=== PATIENT | male | born 1985 | race Caucasian/White ===

== ENCOUNTER 2016-05-20 20:58 | Inpatient (IN) | payer OTHER ==
[2016-05-20 21:24] LABS: VENOUS BLOOD GAS HCO3 11.8 meq/L (19-25)
[2016-05-20 21:25] LABS: VENOUS PH 7.29 (7.32-7.42)
[2016-05-20 21:37] LABS: BASOPHIL 0.7 % (0-2.0); EOSINOPHIL 1.2 % (0-4.5); MCH 29.2 pg (25.7-33.7); MCHC 33.1 g/dl (32.0-35.9); MEAN PLT VOLUME 12.4 fl (7.5-11.1); NEUTROPHILS 71.6 % (42.8-82.8); PLATELET COUNT 279 K/MM3 (134-434); RDW 13.5 % (11.9-15.9); WHITE BLOOD COUNT 12.7 K/mm3 (4.0-10.0)
[2016-05-20 21:39] LABS: URINE APPEARANCE CLOUDY; URINE BILIRUBIN NEGATIVE (NEGATIVE); URINE BLOOD NEGATIVE (NEGATIVE); URINE COLOR YELLOW; URINE GLUCOSE (UA) 2+ (NEGATIVE); URINE KETONE 2+ (NEGATIVE); URINE LEUK ESTERASE NEGATIVE (NEGATIVE); URINE NITRITE NEGATIVE (NEGATIVE); URINE UROBILINOGEN NEGATIVE E.U./dl (0.2-1.0)
[2016-05-20 21:43] LABS: URINE PROTEIN 2+ (NEGATIVE)
[2016-05-20 21:47] LABS: URINE BACTERIA RARE /hpf (NONE SEEN); URINE HYALINE CAST 16 /lpf; URINE MUCUS FEW; URINE RBC 1 /hpf (0-3); URINE WBC 4 /hpf (3-5)
[2016-05-20 22:16] LABS: ALBUMIN 4.5 g/dl (3.4-5.0); ALK PHOS 122 U/L (45-117); ANION GAP 18 (8-16); BILIRUBIN,TOTAL 0.6 mg/dL (0.2-1.0); CALCIUM 9.4 mg/dL (8.5-10.1); CO2 12 mmol/L (21-32); CREATININE 0.8 mg/dL (0.7-1.3); GLUCOSE,RANDOM 291 mg/dL (74-106); SGOT/AST 59 U/L (15-37); SGPT/ALT 147 U/L (12-78); TOT PROT 8.2 g/dl (6.4-8.2)
[2016-05-20] MEDS ORDERED: SODIUM CHLORIDE 1,000 ML IV STA ×2 (22:21→22:53)
--- NOTE | 2016-05-20 22:35 | PDOC ---
History of Present Illness - General History Source: Patient Exam Limitations: No Limitations - History of Present Illness Initial Comments: 05/20/16 23:05 The patient is a 30 year old male, with a significant past medical history of hypertension and recent diagnosis of type 2 diabetes, who presents to the emergency department with elevated glucose. He reports that he has been taking 500 mg metformin twice a day. The patient was seen at [facility] urgent care 2 days ago where he was started on metformin for his newly diagnosed diabetes. He followed up yesterday and had elevate glucoses ranging from 300-400 and was sent to the ED for evaluation today due to abnormal blood work. The patient denies chest pain, shortness of breath, headache and dizziness. Denies fever, chills, nausea, vomit, diarrhea and constipation. Denies dysuria, frequency, urgency and hematuria. Allergies: None Past surgical history: None reported Social history: No alcohol, tobacco or drug use reported <Steve Morrissey - Last Filed: 05/21/16 01:39> - General History Source: Patient Exam Limitations: No Limitations <Edenilson Millan - Last Filed: 05/21/16 01:53> - General Chief Complaint: Revisit, Lab Variance Stated Complaint: PCP REF. Time Seen by Provider: 05/20/16 20:59 Past History <Steve Morrissey - Last Filed: 05/21/16 01:39> - Past Medical History Diabetes: Yes - Psycho/Social/Smoking Cessation Hx Suicidal Ideation: No Smoking Status: No Smoking History: Former smoker Have you smoked in the past 12 months: No Number of Cigarettes Smoked Daily: 0 Information on smoking cessation initiated: No Hx Alcohol Use: No Drug/Substance Use Hx: No <Edenilson Millan - Last Filed: 05/21/16 01:53> - Past Medical History Allergies/Adverse Reactions: Allergies Allergy/AdvReac Type Severity Reaction Status Date / Time No Known Allergies Allergy Verified 05/20/16 21:05 Home Medications: Ambulatory Orders No Home Medications 0 dose .ROUTE UTDICT 11/05/11 Levofloxacin [Levaquin] 750 mg PO DAILY #4 tablet 05/18/15 Ondansetron [Zofran -] 4 mg PO TID #21 tablet 05/18/15 Review of Systems - Review of Systems Able to Perform ROS?: Yes Comments:: 05/20/16 23:22 GENERAL/CONSTITUTIONAL: No fever or chills. No weakness. HEAD, EYES, EARS, NOSE AND THROAT: No change in vision. No ear pain or discharge. No sore throat. CARDIOVASCULAR: No chest pain or shortness of breath RESPIRATORY: No cough, wheezing, or hemoptysis. GASTROINTESTINAL: No nausea, vomiting, diarrhea or constipation. GENITOURINARY: No dysuria, frequency, or change in urination. MUSCULOSKELETAL: No joint or muscle swelling or pain. No neck or back pain. SKIN: No rash NEUROLOGIC: No headache, vertigo, loss of consciousness, or change in strength/ sensation. ENDOCRINE: No increased thirst. No abnormal weight change HEMATOLOGIC/LYMPHATIC: No anemia, easy bleeding, or history of blood clots. ALLERGIC/IMMUNOLOGIC: No hives or skin allergy. <Steve Morrissey - Last Filed: 05/21/16 01:39> *Physical Exam - Vital Signs Last Vital Signs Temp Pulse Resp BP Pulse Ox 97.5 F L 114 H 18 136/78 99 05/20/16 21:05 05/20/16 21:05 05/20/16 21:05 05/20/16 21:05 05/20/16 21:05 - Physical Exam Comments: 05/20/16 23:22 GENERAL: +Obese. Awake, alert, and fully oriented, in no acute distress HEAD: No signs of trauma, normocephalic, atraumatic EYES: PERRLA, EOMI, sclera anicteric, conjunctiva clear ENT: Auricles normal inspection, hearing grossly normal, nares patent, oropharynx clear without exudates. +Dry mucosa NECK: Normal ROM, supple, no lymphadenopathy, JVD, or masses LUNGS: No distress, speaks full sentences, clear to auscultation bilaterally HEART: Regular rate and rhythm, normal S1 and S2, no murmurs, rubs or gallops, peripheral pulses normal and equal bilaterally. ABDOMEN: Soft, nontender, normoactive bowel sounds. No guarding, no rebound. No masses EXTREMITIES: Normal inspection, Normal range of motion, no edema. No clubbing or cyanosis. NEUROLOGICAL: Cranial nerves II through XII grossly intact. Normal speech, normal gait, no focal sensorimotor deficits SKIN: Warm, Dry, normal turgor, no rashes or lesions noted. <Steve Morrissey - Last Filed: 05/21/16 01:39> - Vital Signs Last Vital Signs Temp Pulse Resp BP Pulse Ox 97.5 F L 114 H 18 136/78 99 05/20/16 21:05 05/20/16 21:05 05/20/16 21:05 05/20/16 21:05 05/20/16 21:05 <Edenilson Millan - Last Filed: 05/21/16 01:53> ED Treatment Course - LABORATORY CBC & Chemistry Diagram: 05/20/16 21:10 05/20/16 21:10 - ADDITIONAL ORDERS Additional order review: Laboratory Results 05/20/16 05/20/16 05/20/16 21:12 21:10 21:10 VBG pH 7.29 L POC VBG pCO2 25.3 L POC VBG pO2 64.3 H Mixed VBG HCO3 11.8 L* Sodium 131 L Potassium 3.5 Chloride 101 Carbon Dioxide 12 L D Anion Gap 18 H BUN 10 Creatinine 0.8 Creat Clearance w eGFR > 60 Random Glucose 291 H D Calcium 9.4 Total Bilirubin 0.6 D AST 59 H D ALT 147 H Alkaline Phosphatase 122 H D Total Protein 8.2 Albumin 4.5 Urine Color Yellow Urine Appearance Cloudy Urine pH 6.0 Ur Specific [place] 1.019 Urine Protein 2+ H Urine Glucose (UA) 2+ H Urine Ketones 2+ H Urine Blood Negative Urine Nitrite Negative Urine Bilirubin Negative Urine Urobilinogen Negative Ur Leukocyte Esterase Negative Urine RBC 1 Urine WBC 4 Ur Epithelial Cells Rare Urine Bacteria Rare Hyaline Casts 16 Urine Mucus Few 05/20/16 21:10 RBC 5.47 MCV 88.0 MCHC 33.1 RDW 13.5 MPV 12.4 H D Neutrophils % 71.6 Lymphocytes % 21.5 D Monocytes % 5.0 Eosinophils % 1.2 D Basophils % 0.7 - RADIOLOGY Radiograph Interpretation: 05/21/16 01:40 - Medications Given in the ED: ED Medications Discontinued Medications Generic Name Dose Route Start Last Admin Trade Name Freq PRN Reason Stop Dose Admin Sodium Chloride 1,000 mls @ 2,000 mls/hr 05/20/16 22:21 05/20/16 22:57 Normal Saline - IV 05/20/16 22:50 2,000 mls/hr ASDIR STA Administration Potassium Chloride 40 meq 05/20/16 22:42 05/20/16 22:57 K-Dur - PO 05/20/16 22:43 40 meq ONCE ONE Administration <Steve Morrissey - Last Filed: 05/21/16 01:39> - LABORATORY CBC & Chemistry Diagram: 05/20/16 21:10 05/20/16 21:10 - ADDITIONAL ORDERS Additional order review: Laboratory Results 05/20/16 05/20/16 21:12 21:10 VBG pH 7.29 L POC VBG pCO2 25.3 L POC VBG pO2 64.3 H Mixed VBG HCO3 11.8 L* Urine Color Yellow Urine Appearance Cloudy Urine pH 6.0 Ur Specific [place] 1.019 Urine Protein 2+ H Urine Glucose (UA) 2+ H Urine Ketones 2+ H Urine Blood Negative Urine Nitrite Negative Urine Bilirubin Negative Urine Urobilinogen Negative Ur Leukocyte Esterase Negative Urine RBC 1 Urine WBC 4 Ur Epithelial Cells Rare Urine Bacteria Rare Hyaline Casts 16 Urine Mucus Few 05/20/16 21:10 RBC 5.47 MCV 88.0 MCHC 33.1 RDW 13.5 MPV 12.4 H D Neutrophils % 71.6 Lymphocytes % 21.5 D Monocytes % 5.0 Eosinophils % 1.2 D Basophils % 0.7 <Edenilson Millan - Last Filed: 05/21/16 01:53> Medical Decision Making - Medical Decision Making 05/20/16 22:47 A portion of this note was documented by scribe services under my direction. I have reviewed the details of the note, within reason, and agree with the documentation with the following case summary and management plan written by me. Patient treated in the ED. Nursing notes are reviewed and incorporated into the medical decision-making. Vital signs reviewed. Peripheral IV access obtained by the nurse, laboratory studies are drawn and sent, reviewed and interpreted by myself. Vital Signs Temp Pulse Resp BP Pulse Ox 97.5 F L 114 H 18 136/78 99 05/20/16 21:05 05/20/16 21:05 05/20/16 21:05 05/20/16 21:05 05/20/16 21:05 30-year-old obese male with history of hypertension, recently diagnosed type 2 diabetes 2 days ago presents with persistently elevated glucoses despite being adherent to 500 mg of metformin twice a day. Patient reports for lengthy time since April 03 of having persistent polyuria and polydipsia. Patient was seen at [facility] urgent care 2 days ago and was started on metformin for newly diagnosed diabetes. He follow-up yesterday we persistently elevated glucoses in the 300s to 400s. He had riley the blood work and noted blood abnormalities today and sent the patient to the ER for evaluation. The patient appears to be in mild DKA with an anion gap of 18, glucose at 291, 2 + ketones in the urine. The patient will need IV fluids, insulin drip and a dextrose drip and admission to the hospital. The patient is also noted to have elevated LFTs. Will need further investigation inpatient. 05/21/16 01:52 CBC, BMP 05/20/16 21:10 05/20/16 21:10 CMP Sodium 131 mmol/L (136-145) L 05/20/16 21:10 Potassium 3.5 mmol/L (3.5-5.1) 05/20/16 21:10 Chloride 101 mmol/L (98-107) 05/20/16 21:10 Carbon Dioxide 12 mmol/L (21-32) L D 05/20/16 21:10 Anion Gap 18 (8-16) H 05/20/16 21:10 BUN 10 mg/dL (7-18) 05/20/16 21:10 Creatinine 0.8 mg/dL (0.7-1.3) 05/20/16 21:10 Creat Clearance w eGFR > 60 (>60) 05/20/16 21:10 Random Glucose 291 mg/dL (74-106) H D 05/20/16 21:10 Calcium 9.4 mg/dL (8.5-10.1) 05/20/16 21:10 Total Bilirubin 0.6 mg/dL (0.2-1.0) D 05/20/16 21:10 AST 59 U/L (15-37) H D 05/20/16 21:10 ALT 147 U/L (12-78) H 05/20/16 21:10 Alkaline Phosphatase 122 U/L (45-117) H D 05/20/16 21:10 Total Protein 8.2 g/dl (6.4-8.2) 05/20/16 21:10 Albumin 4.5 g/dl (3.4-5.0) 05/20/16 21:10 Urine Test Results Urine Color Yellow 05/20/16 21:10 Urine Appearance Cloudy 05/20/16 21:10 Urine pH 6.0 (5.0-8.0) 05/20/16 21:10 Ur Specific [place] 1.019 (1.001-1.035) 05/20/16 21:10 Urine Protein 2+ (NEGATIVE) H 05/20/16 21:10 Urine Glucose (UA) 2+ (NEGATIVE) H 05/20/16 21:10 Urine Ketones 2+ (NEGATIVE) H 05/20/16 21:10 Urine Blood Negative (NEGATIVE) 05/20/16 21:10 Urine Nitrite Negative (NEGATIVE) 05/20/16 21:10 Urine Bilirubin Negative (NEGATIVE) 05/20/16 21:10 Ur Leukocyte Esterase Negative (NEGATIVE) 05/20/16 21:10 Urine RBC 1 /hpf (0-3) 05/20/16 21:10 Urine WBC 4 /hpf (3-5) 05/20/16 21:10 Ur Epithelial Cells Rare /hpf (FEW) 05/20/16 21:10 Urine Bacteria Rare /hpf (NONE SEEN) 05/20/16 21:10 Urine Mucus Few 05/20/16 21:10 Labs reviewed. Case discussed with Dr. Etienne. If we can manage to close the AG in the ED, the patient can be admitted to the floors. However, if the patient continues to have persistently elevated GAP, will need an ICU admission. Case signed out to [facility] ED attending Dr. Mckee for further management. <Edenilson Millan - Last Filed: 05/21/16 01:53> *DC/Admit/Observation/Transfer - Attestations Scribe Attestion: 05/20/16 23:05 Documentation prepared by Steve Morrissey, acting as medical record assistant for Edenilson Millan MD <Steve Morrissey - Last Filed: 05/21/16 01:39> <Edenilson Millan - Last Filed: 05/21/16 01:53> Diagnosis at time of Disposition: DKA, type 2 Qualifiers: Diabetes mellitus complication detail: without coma Diabetes mellitus terminal gauger insulin use: unspecified skilled nursing insulin use status Qualified Code(s): E13.10 - Other specified diabetes mellitus with ketoacidosis without coma - Discharge Dispostion Condition at time of disposition: Stable - Referrals Referrals: STAFF,NOT ON [Primary Care Provider] -
[2016-05-20] MEDS ORDERED: POTASSIUM CHLORIDE TABS 20 MEQ TABLET.ER (FP) PO ONE ×2 (22:42→22:52)
[2016-05-20] MEDS ORDERED: DEXTROSE 5%-NORMAL SALINE 1,000 ML IV SCH (23:00)
[2016-05-20] MEDS ORDERED: INSULIN REGULAR 100 UNITS in SODIUM CHLORIDE 99 ML IVPB SCH (23:00)
[2016-05-20 23:28] LABS: ACETONE SERUM POSITIVE SMALL 1+ (NEGATIVE)
--- NOTE | 2016-05-21 00:01 | PN ---
<Richard Etienne - Last Filed: 05/21/16 00:01> Teaching Attending Note Name of Resident: Carlos Ma ATTENDING PHYSICIAN STATEMENT I saw and evaluated the patient. I reviewed the resident's note and discussed the case with the resident. I agree with the resident's findings and plan as documented. SUBJECTIVE: OBJECTIVE: ASSESSMENT AND PLAN: <Sheri Wilder - Last Filed: 05/21/16 03:53> Teaching Attending Note ATTENDING PHYSICIAN STATEMENT I saw and evaluated the patient. I reviewed the resident's note and discussed the case with the resident. I agree with the resident's findings and plan as documented. SUBJECTIVE: Patient is a 30 yo M with a PMHx of hypertension and recent diagnosis of type 2 diabetes who presents with high blood glucose. Patient went to an Urgent care and they sent him to ER for abnormal labs. Pt was feeling generally poor and had increased thirst and urination. Patient received metformin and has since been experiencing nausea and vomiting. Patient also notes dizziness, weakness and frequency for the past 2 weeks. Patient does not have PCP. Denes: diarrhea, cough, fevers, chills, abdominal pain Surgical Hx: right ankle, right hip OBJECTIVE: Last Vital Signs Temp Pulse Resp BP Pulse Ox 98.5 F 96 H 18 111/56 98 05/21/16 01:38 05/21/16 01:38 05/21/16 01:38 05/21/16 01:38 05/21/16 01:38 GENERAL: Morbidly obese. Awake, alert, and fully oriented, in no acute distress. HEENT: Atraumatic. Moist mucosa. Normocephalic. No sinus tenderness. + for acanthosis nigricans. NECK: No JVD. No thyroid masses. Supple. LUNGS: Clear to auscultation bilaterally. No wheezing, rhonchi or rales. HEART: Regular rate and rhythm, normal S1 and S2, no murmurs, rubs or gallops, peripheral pulses normal and equal bilaterally. ABDOMEN: Soft, nontender, normoactive bowel sounds. No guarding, no rebound. No Masses. MUSCULOSKELETAL: No joint tenderness or erythema. No muscle tenderness. Normal muscle bulk and tone. EXTREMITIES: Normal inspection, No edema. No clubbing or cyanosis. Moves all extremities. NEUROLOGICAL: Normal speech, normal gait, no focal sensorimotor deficits. SKIN: Warm, dry, normal turgor, scaly skin changes in hands bilaterally. CBCD WBC 12.7 K/mm3 (4.0-10.0) H D 05/20/16 21:10 RBC 5.47 M/mm3 (4.00-5.60) 05/20/16 21:10 Hgb 16.0 GM/dL (11.7-16.9) 05/20/16 21:10 Hct 48.1 % (35.4-49) 05/20/16 21:10 MCV 88.0 fl (80-96) 05/20/16 21:10 MCHC 33.1 g/dl (32.0-35.9) 05/20/16 21:10 RDW 13.5 % (11.9-15.9) 05/20/16 21:10 Plt Count 279 K/MM3 (134-434) D 05/20/16 21:10 MPV 12.4 fl (7.5-11.1) H D 05/20/16 21:10 CMP Sodium 136 mmol/L (136-145) 05/21/16 03:05 Potassium 3.4 mmol/L (3.5-5.1) L 05/21/16 03:05 Chloride 105 mmol/L (98-107) 05/21/16 03:05 Carbon Dioxide 14 mmol/L (21-32) L 05/21/16 03:05 Anion Gap 17 (8-16) H 05/21/16 03:05 BUN 9 mg/dL (7-18) 05/21/16 03:05 Creatinine 0.8 mg/dL (0.7-1.3) 05/21/16 03:05 Creat Clearance w eGFR > 60 (>60) 05/20/16 21:10 Calcium 8.9 mg/dL (8.5-10.1) 05/21/16 03:05 Total Bilirubin 0.6 mg/dL (0.2-1.0) D 05/20/16 21:10 AST 59 U/L (15-37) H D 05/20/16 21:10 ALT 147 U/L (12-78) H 05/20/16 21:10 Alkaline Phosphatase 122 U/L (45-117) H D 05/20/16 21:10 Total Protein 8.2 g/dl (6.4-8.2) 05/20/16 21:10 Albumin 4.5 g/dl (3.4-5.0) 05/20/16 21:10 ASSESSMENT AND PLAN: Patient is a 30 yo M with a PMHx of HTN and recent diagnosis of type 2 diabetes who presents with mild DKA with an anion gap of 18. 1.) Mild DKA with anion gap of 18 and 1+ acetone in his serum. Pt was feeling polydipsia and polyuria and felt general malaise. s/p insulin drip in ER. To be admitted to medical floor once anion gap is closed -Continue insulin drip until anion gap is closed. -Bridge with long acting sc insulin 10 units -IVF hydration -K+ supplementation -Recheck electrolytes -Switch to insulin sliding scale upon resolution of anion gap -Advance diet as tolerated -Zofran 4 mg IV PRN if nausea or vomiting 2.) HTN controlled -Lisinopril 10 mg daily DVT ppx -Low risk -SCDs Documentation prepared by Sheri Wilder, acting as medical scientific liaison for Richard Etienne M.D.
--- NOTE | 2016-05-21 03:35 | HP ---
CHIEF COMPLAINT: DKA PCP: No pcp HISTORY OF PRESENT ILLNESS: 30 y/o morbid obese M with recently diagnosed DM was sent in by urgent care for high blood glucose. Patient states that he was feeling dizzy and weak from last 2 week so he went to urgent care on wednesday and was diagnosed with DM and was started on metformin 500mg bid. On Wednesday he was still felling dizzy and weak so he went to urgent care again and was again found to have high Blood glucose ( received insulin ). Patient reports dizziness and weakness from last two week. He also states that he had blurry vision but after getting insulin its got better. He also states he is nauseated. Denies headache, chest pain, palpitations, sweating, sob, pain abdomen, nausea, vomiting, burning micturation, pain or swelling in any part of body. Patient also notice polyurea and polydipsia ER course was notable for: (1) In fluid D%NS, (2)insulin drip (3) cbc, bmp, Recent Travel:no PAST MEDICAL HISTORY: HTN recently diagnosed and started on lisinopril 10mg daily PAST SURGICAL HISTORY: hip surgery and ankle surgery Social History: Smoking: no Alcohol: ocassional Drugs: no Family History: father has DM Allergies No Known Allergies Allergy (Verified 05/20/16 21:05) HOME MEDICATIONS: Home Medications Medication Instructions Recorded Metformin HCl [Glucophage -] 500 mg PO DAILY 05/21/16 REVIEW OF SYSTEMS CONSTITUTIONAL: Absent: fever, chills, diaphoresis, generalized weakness, malaise, loss of appetite, weight change HEENT: Absent: rhinorrhea, nasal congestion, throat pain, throat swelling, difficulty swallowing, mouth swelling, ear pain, eye pain, visual changes CARDIOVASCULAR: Absent: chest pain, syncope, palpitations, irregular heart rate, lightheadedness , peripheral edema RESPIRATORY: Absent: cough, shortness of breath, dyspnea with exertion, orthopnea, wheezing, stridor, hemoptysis GASTROINTESTINAL: Absent: abdominal pain, abdominal distension, nausea, vomiting, diarrhea, constipation, melena, hematochezia GENITOURINARY: Absent: dysuria, frequency, urgency, hesitancy, hematuria, flank pain, genital pain MUSCULOSKELETAL: Absent: myalgia, arthralgia, joint swelling, back pain, neck pain SKIN: Absent: rash, itching, pallor HEMATOLOGIC/IMMUNOLOGIC: Absent: easy bleeding, easy bruising, lymphadenopathy, frequent infections ENDOCRINE: Absent: unexplained weight gain, unexplained weight loss, heat intolerance, cold intolerance NEUROLOGIC: Absent: headache, focal weakness or paresthesias, dizziness, unsteady gait, seizure, mental status changes, bladder or bowel incontinence PSYCHIATRIC: Absent: anxiety, depression, suicidal or homicidal ideation, hallucinations. PHYSICAL EXAMINATION Vital Signs - 24 hr 05/20/16 05/21/16 21:05 01:38 Temperature 97.5 F L 98.5 F Pulse Rate 114 H Pulse Rate [ 96 H Right Radial] Respiratory 18 18 Rate Blood Pressure 136/78 Blood Pressure 111/56 [Right Arm] O2 Sat by Pulse 99 98 Oximetry (%) GENERAL: Awake, alert, and fully oriented, in no acute distress. HEAD: Normal with no signs of trauma. EYES: Pupils equal, round and reactive to light, extraocular movements intact, sclera anicteric, conjunctiva clear. No lid lag. EARS, NOSE, THROAT: Ears normal, nares patent, oropharynx clear without exudates. DRy mucous membranes. NECK: Normal range of motion, supple without lymphadenopathy, JVD, or masses. acanthosis nigrans LUNGS: Breath sounds equal, clear to auscultation bilaterally. No wheezes, and no crackles. No accessory muscle use. HEART: Regular rate and rhythm, normal S1 and S2 without murmur, rub or gallop. ABDOMEN: Soft, nontender, not distended, normoactive bowel sounds, no guarding, no rebound, no masses. MUSCULOSKELETAL: Normal range of motion at all joints. No bony deformities or tenderness. No CVA tenderness. UPPER EXTREMITIES: 2+ pulses, warm, well-perfused. No cyanosis. No clubbing. Cap refill <2 seconds. No peripheral edema. LOWER EXTREMITIES: 2+ pulses, warm, well-perfused. No calf tenderness. No peripheral edema. NEUROLOGICAL: Cranial nerves II-XII intact. Normal speech. Normal gait. PSYCHIATRIC: Cooperative. Good eye contact. Appropriate mood and affect. SKIN: Warm, dry, normal turgor, no rashes or lesions noted. Laboratory Results - last 24 hr 05/20/16 05/20/16 05/20/16 21:10 21:10 21:10 WBC 12.7 H D RBC 5.47 Hgb 16.0 Hct 48.1 MCV 88.0 MCHC 33.1 RDW 13.5 Plt Count 279 D MPV 12.4 H D Neutrophils % 71.6 Lymphocytes % 21.5 D Monocytes % 5.0 Eosinophils % 1.2 D Basophils % 0.7 VBG pH POC VBG pCO2 POC VBG pO2 Mixed VBG HCO3 Sodium 131 L Potassium 3.5 Chloride 101 Carbon Dioxide 12 L D Anion Gap 18 H BUN 10 Creatinine 0.8 Creat Clearance w eGFR > 60 Random Glucose 291 H D Calcium 9.4 Total Bilirubin 0.6 D AST 59 H D ALT 147 H Alkaline Phosphatase 122 H D Total Protein 8.2 Albumin 4.5 Urine Color Yellow Urine Appearance Cloudy Urine pH 6.0 Ur Specific [place] 1.019 Urine Protein 2+ H Urine Glucose (UA) 2+ H Urine Ketones 2+ H Urine Blood Negative Urine Nitrite Negative Urine Bilirubin Negative Urine Urobilinogen Negative Ur Leukocyte Esterase Negative Urine RBC 1 Urine WBC 4 Ur Epithelial Cells Rare Urine Bacteria Rare Hyaline Casts 16 Urine Mucus Few Acetone, Qual Positive small 1+ 05/20/16 21:12 WBC RBC Hgb Hct MCV MCHC RDW Plt Count MPV Neutrophils % Lymphocytes % Monocytes % Eosinophils % Basophils % VBG pH 7.29 L POC VBG pCO2 25.3 L POC VBG pO2 64.3 H Mixed VBG HCO3 11.8 L* Sodium Potassium Chloride Carbon Dioxide Anion Gap BUN Creatinine Creat Clearance w eGFR Random Glucose Calcium Total Bilirubin AST ALT Alkaline Phosphatase Total Protein Albumin Urine Color Urine Appearance Urine pH Ur Specific [place] Urine Protein Urine Glucose (UA) Urine Ketones Urine Blood Urine Nitrite Urine Bilirubin Urine Urobilinogen Ur Leukocyte Esterase Urine RBC Urine WBC Ur Epithelial Cells Urine Bacteria Hyaline Casts Urine Mucus Acetone, Qual ASSESSMENT/PLAN: 30 y/o morbid obese male with recently diagnose DM was sent in [facility] and was found to have DKA DKA anion gap of 18, 1+ acetone continue with insulin drip until anion gap is closed continue with IV fluid monitor serum potassium and other electrolyte monitor blood sugar q2h until patient is on Iv drip than q6h switch to insulin sliding scale once anion gap is closed start Diabetic diet once anion gap is closed follow Hba1c follow lipid profile Zofran 4 mg q6h Monitor vital eye examination can be done as an outpatient. HTN controlled continue with lisinopril 10mg po daily monitor blood pressure Morbid obesity low fat diet lose weight, exercise fluid : IV dNS electrolyte : monitor K and na, repeat electrolyte in morning nutrition : diabetic diet once gap is closed dvt pro : patient ambulatory, scd gi pro : not required dispo : admit to med surg. Visit type - Emergency Visit Emergency Visit: Yes ED Registration Date: 05/21/16 Care time: The patient presented to the Emergency Department on the above date and was hospitalized for further evaluation of their emergent condition. - New Patient This patient is new to me today: Yes Date on this admission: 05/21/16 - Critical Care Critical Care patient: No
[2016-05-21] MEDS ORDERED: ONDANSETRON 4 MG/2 ML VIAL IVPB PRN (03:40)
[2016-05-21 03:49] LABS: CALCIUM 8.9 mg/dL (8.5-10.1); CREATININE 0.8 mg/dL (0.7-1.3)
[2016-05-21] MEDS ORDERED: POTASSIUM CHLORIDE TABS 20 MEQ TABLET.ER (FP) PO ONE (03:56)
[2016-05-21] MEDS ORDERED: POTASSIUM CHLORIDE 40 MEQ/30 ML UNIT DOSE CUP PO ONE (04:00)
[2016-05-21] MEDS ORDERED: D5-NS + 20 MEQ KCL - 1,000 ML IV SCH ×2 (04:00→09:00)
--- NOTE | 2016-05-21 04:01 | PDOC ---
*Physical Exam - Vital Signs Last Vital Signs Temp Pulse Resp BP Pulse Ox 98.5 F 96 H 18 111/56 98 05/21/16 01:38 05/21/16 01:38 05/21/16 01:38 05/21/16 01:38 05/21/16 01:38 ED Treatment Course - LABORATORY CBC & Chemistry Diagram: 05/20/16 21:10 05/21/16 03:05 - ADDITIONAL ORDERS Additional order review: Laboratory Results 05/21/16 05/20/16 05/20/16 03:05 21:12 21:10 VBG pH 7.29 L POC VBG pCO2 25.3 L POC VBG pO2 64.3 H Mixed VBG HCO3 11.8 L* Sodium 136 Potassium 3.4 L Chloride 105 Carbon Dioxide 14 L Anion Gap 17 H BUN 9 Creatinine 0.8 Creat Clearance w eGFR Random Glucose 244 H Calcium 8.9 Total Bilirubin AST ALT Alkaline Phosphatase Total Protein Albumin Urine Color Yellow Urine Appearance Cloudy Urine pH 6.0 Ur Specific Tatums 1.019 Urine Protein 2+ H Urine Glucose (UA) 2+ H Urine Ketones 2+ H Urine Blood Negative Urine Nitrite Negative Urine Bilirubin Negative Urine Urobilinogen Negative Ur Leukocyte Esterase Negative Urine RBC 1 Urine WBC 4 Ur Epithelial Cells Rare Urine Bacteria Rare Hyaline Casts 16 Urine Mucus Few Acetone, Qual 05/20/16 21:10 VBG pH POC VBG pCO2 POC VBG pO2 Mixed VBG HCO3 Sodium 131 L Potassium 3.5 Chloride 101 Carbon Dioxide 12 L D Anion Gap 18 H BUN 10 Creatinine 0.8 Creat Clearance w eGFR > 60 Random Glucose 291 H D Calcium 9.4 Total Bilirubin 0.6 D AST 59 H D ALT 147 H Alkaline Phosphatase 122 H D Total Protein 8.2 Albumin 4.5 Urine Color Urine Appearance Urine pH Ur Specific Tatums Urine Protein Urine Glucose (UA) Urine Ketones Urine Blood Urine Nitrite Urine Bilirubin Urine Urobilinogen Ur Leukocyte Esterase Urine RBC Urine WBC Ur Epithelial Cells Urine Bacteria Hyaline Casts Urine Mucus Acetone, Qual Positive small 1+ 05/20/16 21:10 RBC 5.47 MCV 88.0 MCHC 33.1 RDW 13.5 MPV 12.4 H D Neutrophils % 71.6 Lymphocytes % 21.5 D Monocytes % 5.0 Eosinophils % 1.2 D Basophils % 0.7 - Medications Given in the ED: ED Medications Discontinued Medications Generic Name Dose Route Start Last Admin Trade Name Freq PRN Reason Stop Dose Admin Sodium Chloride 1,000 mls @ 2,000 mls/hr 05/20/16 22:21 05/20/16 22:57 Normal Saline - IV 05/20/16 22:50 2,000 mls/hr ASDIR STA Administration Sodium Chloride 1,000 mls @ 1,000 mls/hr 05/20/16 22:53 05/21/16 01:39 Normal Saline - IV 05/20/16 23:52 1,000 mls/hr ASDIR STA Administration Potassium Chloride 40 meq 05/20/16 22:42 05/20/16 22:57 K-Dur - PO 05/20/16 22:43 40 meq ONCE ONE Administration *DC/Admit/Observation/Transfer Diagnosis at time of Disposition: DKA, type 2 Qualifiers: Diabetes mellitus complication detail: without coma Diabetes mellitus terminal operator insulin use: unspecified terminal operator insulin use status Qualified Code(s): E13.10 - Other specified diabetes mellitus with ketoacidosis without coma - Discharge Dispostion Condition at time of disposition: Stable Admit: Yes - Referrals Referrals: STAFF,NOT ON [Primary Care Provider] - - Patient Instructions - Post Discharge Activity
[2016-05-21 06:20] LABS: BASOPHIL 0.8 % (0-2.0); MCH 29.8 pg (25.7-33.7); MCHC 34.5 g/dl (32.0-35.9); MEAN CELL VOLUME 86.3 fl (80-96); MEAN PLT VOLUME 11.5 fl (7.5-11.1); PLATELET COUNT 209 K/MM3 (134-434); RDW 13.6 % (11.9-15.9); WHITE BLOOD COUNT 9.8 K/mm3 (4.0-10.0)
[2016-05-21 06:57] LABS: CALCIUM 8.9 mg/dL (8.5-10.1); CREATININE 0.7 mg/dL (0.7-1.3); MAGNESIUM 1.7 mg/dL (1.8-2.4); PHOSPHOROUS 1.2 mg/dL (2.5-4.9)
[2016-05-21] MEDS ORDERED: SODIUM CHLORIDE 1,000 ML IV SCH (08:15)
[2016-05-21] MEDS ORDERED: D5-1/2NS+10 MEQ KCL - 1,000 ML IV SCH (08:15)
[2016-05-21] MEDS ORDERED: INSULIN DETEMIR 100 UNITS/ML MDV SQ ONE ×2 (08:49→09:00)
[2016-05-21] MEDS ORDERED: NAPH,MB-DB/K PH,MBDB POWDER PACKET PO ONE ×3 (09:00→17:00)
[2016-05-21] MEDS ORDERED: MAGNESIUM OXIDE 400 MG TABLET (FP) PO ONE ×3 (09:00→17:00)
[2016-05-21] MEDS ORDERED: LISINOPRIL 5 MG TABLET (FP) ONE (09:18)
[2016-05-21] MEDS ORDERED: MAGNESIUM OXIDE 400 MG TABLET (FP) ONE (09:18)
[2016-05-21] MEDS: LISINOPRIL 10 MG TABLET (FP) PO SCH (09:25)
[2016-05-21 10:20] VITALS: BMI 46.5
[2016-05-21 13:50] LABS: MCH 29.7 pg (25.7-33.7); MCHC 33.8 g/dl (32.0-35.9); MEAN PLT VOLUME 11.3 fl (7.5-11.1); PLATELET COUNT 185 K/MM3 (134-434); RDW 13.9 % (11.9-15.9); WHITE BLOOD COUNT 9.8 K/mm3 (4.0-10.0)
[2016-05-21 13:59] LABS: CALCIUM 8.9 mg/dL (8.5-10.1); CREATININE 0.7 mg/dL (0.7-1.3); MAGNESIUM 1.7 mg/dL (1.8-2.4); PHOSPHOROUS 1.8 mg/dL (2.5-4.9)
--- NOTE | 2016-05-21 14:14 | MSN ---
Progress Note (SOAP) - Subjective Chief Complaint: Dizziness and weakness [id number] History of Present Illness: Patient is a 30 YO M with morbid obesity that was diagnosed with DMII on wednesday. For the past 2 weeks he has been feeling exceedingly weak and fatigued. He complained of polyuria, polydipsia, and weight loss. On wednesday he went to the urgent care center who diagnosed him with DMII. He was placed on Metformin 500g BID. The metformin caused the pateint to feel some Nausea and vomitting. On Wednesday the patient met with his grain weigher who took blood samples, and placed him on Levimir due to his high glucose. At that time the patient was placed on lisinopril due to his HTN. On wednesday his grain weigher called him and told him to go to the ED due to his blood lab values. The patient is continuing to feel weak and tired. He denies any NVD at the moment, but states that he has not bowel movements due to a lack of appetite. - Current Medications Current Medications: Active Medications Dextrose/Sodium Chloride (Dextrose 5%-Normal Saline+20 Meq Kcl -) 1,000 mls @ 100 mls/hr IV ASDIR [facility] Last Admin: 05/21/16 08:57 Dose: 100 mls/hr Insulin Aspart (Novolog Vial) 0 units SQ ACHS [facility] PRN Reason: Protocol Lisinopril (Prinivil) 10 mg PO DAILY [facility] Last Admin: 05/21/16 09:25 Dose: 10 mg Ondansetron HCl (Zofran Injection) 4 mg IVPB Q4H PRN PRN Reason: NAUSEA AND/OR VOMITING - Objective Vital Signs: Vital Signs Temperature 98.2 F 05/21/16 10:13 Pulse Rate 98 H 05/21/16 10:13 Respiratory Rate 16 05/21/16 10:13 Blood Pressure 115/57 05/21/16 10:13 O2 Sat by Pulse Oximetry (%) 97 05/21/16 10:13 Constitutional: Yes: Well Nourished, No Distress, Calm, Obese Eyes: Yes: WNL, Conjunctiva Clear, EOM Intact HENT: Yes: WNL, Atraumatic, Normocephalic Neck: Yes: WNL, Supple, Trachea Midline Cardiovascular: Yes: WNL, Regular Rate and Rhythm, S1, S2 Respiratory: Yes: WNL, Regular, CTA Bilaterally Gastrointestinal: Yes: WNL, Normal Bowel Sounds, Soft Musculoskeletal: Yes: WNL Extremities: Yes: WNL Peripheral Pulses WNL: Yes Edema: No Integumentary: Yes: WNL Neurological: Yes: WNL, Alert, Oriented ...Motor Strength: Yes: WNL Psychiatric: Yes: WNL, Alert, Oriented Labs Lab Results: CBC, BMP 05/21/16 13:10 05/21/16 13:10 Assessment/Plan Patient is a 30 YO M with morbid obesity, and DM II who presented to the ED in DKA. DKA -Gap Closed -Start patient on levimir -let patient eat -Use SSI -Monitor electrolytes -Educate Patient about Diabetes -Have pt meet with dietitian HTN -Monitor BP -Cont Lisinopril PX -Ambulate patient
--- NOTE | 2016-05-21 14:28 | PN ---
Teaching Attending Note Name of Resident: Christopher Hess ATTENDING PHYSICIAN STATEMENT I saw and evaluated the patient. I reviewed the resident's note and discussed the case with the resident. I agree with the resident's findings and plan as documented. SUBJECTIVE:currently asymptomatic. states he longer feels nauseated. tolerated some of his late breakfast he received. claims compliance with new medications that he was given. denies CP, SOB,fever, chills, N/V/C/D OBJECTIVE: Last Vital Signs Temp Pulse Resp BP Pulse Ox 98.4 F 103 H 18 115/57 97 05/21/16 14:00 05/21/16 14:00 05/21/16 14:00 05/21/16 10:13 05/21/16 10:13 General NAD CV S1 S2 RRR no murmur/rub/gallop Lungs CTA B/L no wheezing/rales/rhonchi Abdomen soft NT/ND morbid obese extremities no pedal edema ASSESSMENT AND PLAN: 30yo M with morbid obesity and recently diagnosed DM and HTN presented to the ER and was admitted for further evaluation of their emergent condition 1. DKA- likely due to poorly controlled DM as medications newly started and was not tolerating well. AG closed at 0600. given 20 units of levemir. will check another serum labs to ensure AG remains closed. advance diet. iss and bgm over the next 24H to monitor insulin requirements. diabetic teaching. 2. Hypomangesemia- Mg 800mg 3. Hypophosphatemia- neutraphos x2 4. HTN- improved with home medications given. monitor 5. Morbid obesity- BMI 46. counseled pt on risk factors of obesity and likelyhood that his new conditions are from his weight. counseled on risks of early CAD, kidney failure and poor wound healing. stressed importance of lifestyle modifications to ensure weight loss. answered all questions and verbalized understanding 6, DVT ppx- EAM 7. d/c planning tomorrow if sugars remain controlled
[2016-05-21 15:05] LABS: THYROID STIMULATING HORMONE 0.93 uIU/ml (0.358-3.74)
[2016-05-21] MEDS: INSULIN (NOVOLOG) ASPART 100 UNITS/ML 10ML VIAL SQ SCH ×2 (16:38→22:05)
--- NOTE | 2016-05-21 17:02 | PN ---
Physical Exam: SUBJECTIVE: Patient seen and examined at bedside. patient complains of being lethargic, polyurea, polydypsia patient denies N/V/D/ fevers, chills, [place], dizziness, cp, sob. OBJECTIVE: Vital Signs Period Temp Pulse Resp BP Sys/José Pulse Ox Last 24 Hr 98 F-98.4 F 96-103 16-20 106-125/57-68 97-99 GENERAL: Awake, alert, and fully oriented, in no acute distress. HEAD: Normal with no signs of trauma. EYES: extraocular movements intact, sclera anicteric, conjunctiva clear. No lid lag. EARS, NOSE, THROAT: Ears normal, nares patent, oropharynx clear without exudates. Dry mucous membranes. NECK: Normal range of motion, supple without lymphadenopathy, JVD, or masses. acanthosis nigrans LUNGS: Breath sounds equal, clear to auscultation bilaterally. No wheezes, and no crackles. No accessory muscle use. HEART: Regular rate and rhythm, normal S1 and S2 without murmur, rub or gallop. ABDOMEN: Obese, Soft, nontender, not distended, normoactive bowel sounds, no guarding, no rebound, no masses. MUSCULOSKELETAL: Normal range of motion at all joints. No bony deformities or tenderness. No CVA tenderness. UPPER EXTREMITIES: 2+ pulses, warm, well-perfused. No cyanosis. No clubbing. Cap refill <2 seconds. No peripheral edema. LOWER EXTREMITIES: 2+ pulses, warm, well-perfused. No calf tenderness. No peripheral edema. NEUROLOGICAL: Cranial nerves II-XII intact. Normal speech. Normal gait. PSYCHIATRIC: Cooperative. Good eye contact. Appropriate mood and affect. SKIN: Warm, dry, normal turgor, acanthosis migracans, stretch [place] Laboratory Results - last 24 hr 05/21/16 05/21/16 05/21/16 06:00 06:00 06:00 WBC 9.8 RBC 4.85 Hgb 14.4 Hct 41.8 MCV 86.3 MCHC 34.5 RDW 13.6 Plt Count 209 D MPV 11.5 H Neutrophils % 70.0 Lymphocytes % 21.7 Monocytes % 6.5 Eosinophils % 1.0 Basophils % 0.8 Sodium 138 Potassium 4.5 D Chloride 109 H Carbon Dioxide 17 L D Anion Gap 12 BUN 9 Creatinine 0.7 POC Glucometer Random Glucose 161 H D Hemoglobin A1c % 9.0 H Calcium 8.9 Phosphorus 1.2 L Magnesium 1.7 L Triglycerides 144 Cholesterol 227 H Total LDL Cholesterol 174 H HDL Cholesterol 30 L TSH Free T4 05/21/16 05/21/16 05/21/16 08:02 09:37 12:00 WBC RBC Hgb Hct MCV MCHC RDW Plt Count MPV Neutrophils % Lymphocytes % Monocytes % Eosinophils % Basophils % Sodium Potassium Chloride Carbon Dioxide Anion Gap BUN Creatinine POC Glucometer 130.40327 153.19823 236 Random Glucose Hemoglobin A1c % Calcium Phosphorus Magnesium Triglycerides Cholesterol Total LDL Cholesterol HDL Cholesterol TSH Free T4 05/21/16 05/21/16 05/21/16 13:10 13:10 13:10 WBC 9.8 RBC 4.82 Hgb 14.3 Hct 42.4 MCV 88.0 MCHC 33.8 RDW 13.9 Plt Count 185 MPV 11.3 H Neutrophils % Lymphocytes % Monocytes % Eosinophils % Basophils % Sodium 135 L Potassium 4.0 Chloride 104 Carbon Dioxide 16 L Anion Gap 15 BUN 9 Creatinine 0.7 POC Glucometer Random Glucose 314 H* D Hemoglobin A1c % Calcium 8.9 Phosphorus 1.8 L D Magnesium 1.7 L Triglycerides Cholesterol Total LDL Cholesterol HDL Cholesterol TSH 0.93 Free T4 1.25 H Active Medications Generic Name Dose Route Start Last Admin Trade Name Freq PRN Reason Stop Dose Admin Insulin Aspart 0 units 05/21/16 16:30 05/21/16 16:38 Novolog Vial SQ 6 units ACHS [facility] Administration Protocol Lisinopril 10 mg 05/21/16 10:00 05/21/16 09:25 Prinivil PO 10 mg DAILY [facility] Administration Ondansetron HCl 4 mg 05/21/16 03:40 Zofran Injection IVPB Q4H PRN NAUSEA AND/OR VOMITING 30 y/o morbid obese male with recently diagnose DM was sent in by uregent care and preseents with for hyperglycemia and lethargy was found to have DKA. DKA 2/2 to newly and poorly diagnosed Dm. Hba1c 9 AG closed at 0600, Given 20 units of Levemir, d/c insulin drip, ISS, recheck serum lab shows anion gap is reopening at 15, will recheck another set of labs. will start fluids if needed with repeat labs. monitor and replete serum potassium/mag, phos and other electrolyte advance to diabetic diet. Zofran 4 mg q6h Monitor vital eye examination can be done as an outpatient. HTN controlled continue with home lisinopril 10mg po daily monitor blood pressure Morbid obesity: BMI 46 low fat diet lose weight, exercise education, discussed with patient the importants of weight reduction and benefit of life style modification. diet education consult HDL diet consult education discussed with patient the importance life style modification fluid :oral hydartaion, pending bmp if anion gap increases start dNS and insulin dripp. electrolyte : monitor K and na, repeat electrolyte nutrition : diabetic diet once gap is closed dvt pro : patient ambulatory, scd gi pro : not required dispo : will consider to discharge tomorrow if anion gap is corrected and controlled BS controlled Visit type - Emergency Visit Emergency Visit: Yes ED Registration Date: 05/21/16 Care time: The patient presented to the Emergency Department on the above date and was hospitalized for further evaluation of their emergent condition. - New Patient This patient is new to me today: No - Critical Care Critical Care patient: No
[2016-05-21 19:46] LABS: CALCIUM 8.6 mg/dL (8.5-10.1); CREATININE 0.9 mg/dL (0.7-1.3); MAGNESIUM 1.8 mg/dL (1.8-2.4)
[2016-05-21] MEDS ORDERED: INSULIN (NOVOLOG) ASPART 100 UNITS/ML 10ML VIAL SQ ONE (20:07)
[2016-05-21] MEDS ORDERED: INSULIN (NOVOLOG) ASPART 100 UNITS/ML 10ML VIAL ONE (20:08)
[2016-05-21] MEDS ORDERED: SODIUM CHLORIDE 1,000 ML IV STA (20:11)
[2016-05-21 20:44] LABS: ALBUMIN 3.7 g/dl (3.4-5.0); BILIRUBIN,TOTAL 0.5 mg/dL (0.2-1.0); SGOT/AST 53 U/L (15-37); SGPT/ALT 122 U/L (12-78); TOT PROT 6.7 g/dl (6.4-8.2)
[2016-05-21 20:45] LABS: ALK PHOS 101 U/L (45-117)
[2016-05-21 22:20] LABS: CALCIUM 8.3 mg/dL (8.5-10.1); CREATININE 0.8 mg/dL (0.7-1.3)
[2016-05-22] MEDS ORDERED: INSULIN (NOVOLOG) ASPART 100 UNITS/ML 10ML VIAL ONE ×3 (06:08→21:28)
[2016-05-22] MEDS: INSULIN (NOVOLOG) ASPART 100 UNITS/ML 10ML VIAL SQ SCH ×2 (06:37→10:44)
--- NOTE | 2016-05-22 07:46 | PN ---
Physical Exam: SUBJECTIVE: Patient seen and examined OBJECTIVE: Vital Signs Period Temp Pulse Resp BP Sys/José Pulse Ox Last 24 Hr 98.2 F-98.4 F 78-103 16-20 111-138/57-76 97-97 GENERAL: The patient is awake, alert, and fully oriented, in no acute distress. HEAD: Normal with no signs of trauma. EYES: PERRL, extraocular movements intact, sclera anicteric, conjunctiva clear. No ptosis. ENT: Ears normal, nares patent, oropharynx clear without exudates, moist mucous membranes. NECK: Trachea midline, full range of motion, supple. LUNGS: Breath sounds equal, clear to auscultation bilaterally, no wheezes, no crackles, no accessory muscle use. HEART: Regular rate and rhythm, S1, S2 without murmur, rub or gallop. ABDOMEN: Soft, nontender, nondistended, normoactive bowel sounds, no guarding, no rebound, no hepatosplenomegaly, no masses. EXTREMITIES: 2+ pulses, warm, well-perfused, no edema. NEUROLOGICAL: Cranial nerves II through XII grossly intact. Normal speech, gait not observed. PSYCH: Normal mood, normal affect. SKIN: Warm, dry, normal turgor, no rashes or lesions noted Laboratory Results - last 24 hr 05/21/16 05/21/16 05/21/16 06:00 08:02 09:37 WBC RBC Hgb Hct MCV MCHC RDW Plt Count MPV Sodium Potassium Chloride Carbon Dioxide Anion Gap BUN Creatinine Creat Clearance w eGFR POC Glucometer 130.84944 153.93633 Random Glucose Hemoglobin A1c % 9.0 H Calcium Phosphorus Magnesium Total Bilirubin AST ALT Alkaline Phosphatase Total Protein Albumin TSH Free T4 05/21/16 05/21/16 05/21/16 12:00 13:10 13:10 WBC 9.8 RBC 4.82 Hgb 14.3 Hct 42.4 MCV 88.0 MCHC 33.8 RDW 13.9 Plt Count 185 MPV 11.3 H Sodium 135 L Potassium 4.0 Chloride 104 Carbon Dioxide 16 L Anion Gap 15 BUN 9 Creatinine 0.7 Creat Clearance w eGFR POC Glucometer 236 Random Glucose 314 H* D Hemoglobin A1c % Calcium 8.9 Phosphorus 1.8 L D Magnesium 1.7 L Total Bilirubin AST ALT Alkaline Phosphatase Total Protein Albumin TSH 0.93 Free T4 05/21/16 05/21/16 05/21/16 13:10 16:36 18:45 WBC RBC Hgb Hct MCV MCHC RDW Plt Count MPV Sodium 134 L Potassium 3.9 Chloride 103 Carbon Dioxide 16 L Anion Gap 15 BUN 9 Creatinine 0.9 D Creat Clearance w eGFR POC Glucometer 294 Random Glucose 348 H* Hemoglobin A1c % Calcium 8.6 Phosphorus 2.0 L Magnesium 1.8 Total Bilirubin AST ALT Alkaline Phosphatase Total Protein Albumin TSH Free T4 1.25 H 05/21/16 05/21/16 05/21/16 20:03 20:09 20:40 WBC RBC Hgb Hct MCV MCHC RDW Plt Count MPV Sodium Y 135 L Potassium Y 3.5 Chloride Y 105 Carbon Dioxide Y 17 L Anion Gap Y 13 BUN Y 10 Creatinine Y 0.8 Creat Clearance w eGFR > 60 POC Glucometer 323 Random Glucose Not Reportable 314 H* Hemoglobin A1c % Calcium Y 8.3 L Phosphorus Magnesium Total Bilirubin 0.5 AST 53 H ALT 122 H Alkaline Phosphatase 101 Total Protein 6.7 Albumin 3.7 TSH Free T4 05/21/16 05/22/16 05/22/16 22:03 00:32 04:00 WBC RBC Hgb Hct MCV MCHC RDW Plt Count MPV Sodium Potassium Chloride Carbon Dioxide Anion Gap BUN Creatinine Creat Clearance w eGFR POC Glucometer 256 236 224 Random Glucose Hemoglobin A1c % Calcium Phosphorus Magnesium Total Bilirubin AST ALT Alkaline Phosphatase Total Protein Albumin TSH Free T4 05/22/16 05:55 WBC RBC Hgb Hct MCV MCHC RDW Plt Count MPV Sodium Potassium Chloride Carbon Dioxide Anion Gap BUN Creatinine Creat Clearance w eGFR POC Glucometer 213 Random Glucose Hemoglobin A1c % Calcium Phosphorus Magnesium Total Bilirubin AST ALT Alkaline Phosphatase Total Protein Albumin TSH Free T4 Active Medications Generic Name Dose Route Start Last Admin Trade Name Freq PRN Reason Stop Dose Admin Insulin Aspart 0 units 05/21/16 16:30 05/22/16 06:37 Novolog Vial SQ 4 units ACHS [facility] Administration Protocol Lisinopril 10 mg 05/21/16 10:00 05/21/16 09:25 Prinivil PO 10 mg DAILY [facility] Administration Ondansetron HCl 4 mg 05/21/16 03:40 Zofran Injection IVPB Q4H PRN NAUSEA AND/OR VOMITING ASSESSMENT/PLAN: Active Medications Insulin Aspart (Novolog Vial) 0 units SQ ACHS [facility] PRN Reason: Protocol Last Admin: 05/22/16 06:37 Dose: 4 units Lisinopril (Prinivil) 10 mg PO DAILY [facility] Last Admin: 05/21/16 09:25 Dose: 10 mg Ondansetron HCl (Zofran Injection) 4 mg IVPB Q4H PRN PRN Reason: NAUSEA AND/OR VOMITING
[2016-05-22] MEDS ORDERED: INSULIN DETEMIR 100 UNITS/ML MDV SQ ONE ×4 (08:30→21:28)
[2016-05-22 08:31] LABS: CALCIUM 8.6 mg/dL (8.5-10.1); CREATININE 0.6 mg/dL (0.7-1.3); MAGNESIUM 1.8 mg/dL (1.8-2.4); PHOSPHOROUS 2.6 mg/dL (2.5-4.9)
[2016-05-22] MEDS ORDERED: NAPH,MB-DB/K PH,MBDB POWDER PACKET PO ONE (09:00)
[2016-05-22] MEDS: LISINOPRIL 10 MG TABLET (FP) PO SCH (10:44)
[2016-05-22] MEDS ORDERED: POTASSIUM CHLORIDE TABS 20 MEQ TABLET.ER (FP) PO ONE (12:30)
[2016-05-22 14:13] LABS: CALCIUM 8.7 mg/dL (8.5-10.1); CREATININE 0.8 mg/dL (0.7-1.3); MAGNESIUM 1.9 mg/dL (1.8-2.4); PHOSPHOROUS 2.9 mg/dL (2.5-4.9)
--- NOTE | 2016-05-22 15:17 | DS ---
Physical Exam: SUBJECTIVE: Patient seen and examined at bed side. currently asymptomatic. no event over night. + BM Denies any CP, SOB, NVDC, PACHECO, or vision changes. metabolic syndrome OBJECTIVE: Vital Signs Period Temp Pulse Resp BP Sys/José Pulse Ox Last 24 Hr 98.0 F-98.4 F 78-97 20-20 111-138/58-81 97-97 PHYSICAL EXAM GENERAL: Awake, alert, and fully oriented, in no acute distress. HEAD: Normal with no signs of trauma. EYES: extraocular movements intact, sclera anicteric, conjunctiva clear. No lid lag. EARS, NOSE, THROAT: Ears normal, nares patent, oropharynx clear without exudates. Dry mucous membranes. NECK: Normal range of motion, supple without lymphadenopathy, JVD, or masses. acanthosis nigrans LUNGS: Breath sounds equal, clear to auscultation bilaterally. No wheezes, and no crackles. No accessory muscle use. HEART: Regular rate and rhythm, normal S1 and S2 without murmur, rub or gallop. ABDOMEN: Obese, Soft, nontender, not distended, normoactive bowel sounds, no guarding, no rebound, no masses. MUSCULOSKELETAL: Normal range of motion at all joints. No bony deformities or tenderness. No CVA tenderness. LOWER EXTREMITIES: 2+ pulses, warm, well-perfused. No calf tenderness. No peripheral edema. NEUROLOGICAL: Normal speech. PSYCHIATRIC: Cooperative. Good eye contact. Appropriate mood and affect. SKIN: Warm, dry, normal turgor, acanthosis migracans, stretch [place] LABS Laboratory Results - last 24 hr 05/21/16 05/21/16 05/21/16 13:10 16:36 18:45 Sodium 134 L Potassium 3.9 Chloride 103 Carbon Dioxide 16 L Anion Gap 15 BUN 9 Creatinine 0.9 D Creat Clearance w eGFR POC Glucometer 294 Random Glucose 348 H* Calcium 8.6 Phosphorus 2.0 L Magnesium 1.8 Total Bilirubin AST ALT Alkaline Phosphatase Total Protein Albumin TSH 0.93 05/21/16 05/21/16 05/21/16 20:03 20:09 20:40 Sodium Y 135 L Potassium Y 3.5 Chloride Y 105 Carbon Dioxide Y 17 L Anion Gap Y 13 BUN Y 10 Creatinine Y 0.8 Creat Clearance w eGFR > 60 POC Glucometer 323 Random Glucose Not Reportable 314 H* Calcium Y 8.3 L Phosphorus Magnesium Total Bilirubin 0.5 AST 53 H ALT 122 H Alkaline Phosphatase 101 Total Protein 6.7 Albumin 3.7 TSH 05/21/16 05/22/16 05/22/16 22:03 00:32 04:00 Sodium Potassium Chloride Carbon Dioxide Anion Gap BUN Creatinine Creat Clearance w eGFR POC Glucometer 256 236 224 Random Glucose Calcium Phosphorus Magnesium Total Bilirubin AST ALT Alkaline Phosphatase Total Protein Albumin TSH 05/22/16 05/22/16 05/22/16 05:55 07:45 10:41 Sodium 138 Potassium 3.1 L Chloride 104 Carbon Dioxide 20 L Anion Gap 14 BUN 9 Creatinine 0.6 L D Creat Clearance w eGFR POC Glucometer 213 288 Random Glucose 244 H D Calcium 8.6 Phosphorus 2.6 D Magnesium 1.8 Total Bilirubin AST ALT Alkaline Phosphatase Total Protein Albumin TSH 05/22/16 13:40 Sodium 134 L Potassium 3.6 Chloride 101 Carbon Dioxide 21 Anion Gap 12 BUN 9 Creatinine 0.8 D Creat Clearance w eGFR POC Glucometer Random Glucose 367 H* D Calcium 8.7 Phosphorus 2.9 Magnesium 1.9 Total Bilirubin AST ALT Alkaline Phosphatase Total Protein Albumin TSH 30yo M with morbid obesity and recently diagnosed DM and HTN presented to the ER and was admitted for further evaluation of their emergent condition 1. DKA-resolved. sugars improved. will require further adjustment and explained to pt. answered all questions about insulin and further management. agrees to see pmd on wednesday. d/c on levemir 10untis BID and iss. 2. Hypokaelmia- kcl 40meq. d/c on several days of oral supplementation 3. Hypophosphatemia- resolved 4. HTN- controlled monitor 5. Morbid obesity- BMI 46. educated on lifestyle changes and need to decrease weight, if not successful will need to consider bariatric surgery. 6. dyslipidemia- LDL above goal. will initiate lifestyle modifications. repeat lipid panel in 3 months 7. d/c home. answered all questions. verbalized understanding and agreement with plan HOSPITAL COURSE: Date of Admission:05/21/16 Date of Discharge: 05/22/16 30 y/o morbid obese M with recently diagnosed DM was sent in by urgent care for high blood glucose. Patient states that he was feeling dizzy and weak from last 2 week so he went to urgent care on wednesday and was diagnosed with DM and was started on metformin 500mg bid. On Wednesday he was still felling dizzy and weak so he went to urgent care again and was again found to have high Blood glucose ( received insulin ). Patient reports dizziness and weakness from last two week. He also states that he had blurry vision but after getting insulin its got better. He also states he is nauseated. Denies headache, chest pain, palpitations, sweating, sob, pain abdomen, nausea, vomiting, burning micturation , pain or swelling in any part of body. Patient also notice polyurea and polydipsia morbid obese male with recently diagnose DM [facility] for hyperglycemia and lethargy was found to have DKA 2/2 to newly and poorly diagnosed Dm. Hba1c 9. AG closed, Given 20 units of Levemir, d /c insulin drip, ISS, IVF. replete serum potassium/mag, phos. HTN controlled treated with home lisinopril 10mg po daily. Morbid obesity: BMI 46. patient discharged clinically stable, vitals stable. Minutes to complete discharge: 35 Discharge Summary Reason For Visit: DKA TYPE 2 Current Active Problems DKA, type 2 (Acute) Condition: Stable - Instructions Diet, Activity, Other Instructions: You are being discharged home. Follow a low salt, diabetic diet. Excercise regularly 3x/week, your goal is to loose 1 pound a week. Please call and follow up with your primary care provider by Wednesday to assess your diabetes and your metabolic syndrome. Please keep a log and take it with you to the doctors appointment on Wednesday. you will need your A1c checked in 3 months. Here it is 9 Please take your medications as prescribed. Please read the education information that we provided and we talked about. Please take long acting levemir 10 units twice a day. Please check and keep a log of your blood sugar before meals breakfast lunch and dinner. If your blood sugar is lower is less than 90 or you feel low blood sugar symptoms please drink juice or eat hard candy to increase your sugar level. If your blood sugar is 101-150 dont take insulin If your blood sugar is 151 to 200 take 2 units of Novolog insulin. If your blood sugar is 201 to 250 take 4 units of Novolog insulin. If your blood sugar is 251 to 300 take 6 units of Novolog insulin. If your blood sugar is 301 to 350 take 8 units of Novolog insulin. If your blood sugar is 400 or more please call your primary care doctor Please reports to the ER or the nearest ER if you have any persistent and worsening symptoms, chest pain, palpitation, fevers, chills, night sweats, Nausea, Vomiting, severe headache dizziness or loss of consciousness. Referrals: STAFF,NOT ON [Primary Care Provider] - Disposition: HOME - Home Medications Comprehensive Discharge Medication List: Ambulatory Orders Lisinopril 10 mg PO DAILY 05/21/16 Insulin (Levemir) [Levemir Flexpen -] 15 units SQ DAILY #3 pen 05/22/16 Insulin (Novolog) [Novolog Flexpen] 1 units SQ ACHS #7 units 05/22/16 Insulin Aspart [Novolog Flexpen] 100 unit SQ ACHS #10 insuln.pen 05/22/16 This patient is new to me today: No Emergency Visit: Yes ED Registration Date: 05/21/16 Care time: The patient presented to the Emergency Department on the above date and was hospitalized for further evaluation of their emergent condition. Critical Care patient: No - Discharge Referral Referred to [facility] Med P.C.: No
--- NOTE | 2016-05-22 15:24 | PN ---
Teaching Attending Note Name of Resident: Christopher Hess ATTENDING PHYSICIAN STATEMENT I saw and evaluated the patient. I reviewed the resident's note and discussed the case with the resident. I agree with the resident's findings and plan as documented. SUBJECTIVE:states he has some mild dizzyness intermittently not related to movement or anything else. self resolves after a several minutes. denies CP, SOB ,fever, chills, N/V/C/D, blurred vision, parathesia OBJECTIVE: Last Vital Signs Temp Pulse Resp BP Pulse Ox 98.0 F 97 H 20 135/81 97 05/22/16 08:00 05/22/16 08:00 05/22/16 08:00 05/22/16 08:00 05/22/16 08:00 General NAD CV S1 S2 RRR no murmur/rub/gallop ASSESSMENT AND PLAN: 30yo M with morbid obesity and recently diagnosed DM and HTN presented to the ER and was admitted for further evaluation of their emergent condition 1. DKA-resolved. sugars remain high but pt likley experiencing hypoglycemia as his sugars improve. A1c 9. give levemir 10 units this AM. sugars remain high however do not want to dramatically reduce sugars. counseled by dietary on diabetic management. will d/c on levemir 15units AM and ISS. pt seems dedicated to lifestyle changes to obtain improved glucose control. explained s/s of hypoglycemia. will document sugars over the next few days and follow up with PMD on wednesday for futher insulin adjustment. 2. Hypokaelmia- kcl 40meq. repeat resolved 3. Hypophosphatemia- neutraphos x2 4. HTN- controlled monitor 5. Morbid obesity- BMI 46. educated on lifestyle changes and need to decrease weight, if not successful will need to consider bariatric surgery. 6. dyslipidemia- LDL above goal. will initiate lifestyle modifications. repeat lipid panel in 3 months 7. d/c home. mother present at bedside during counseling. answered all questions. verbalized understanding of plan
--- NOTE | 2016-05-22 15:36 | MSN ---
Progress Note (SOAP) - Subjective Chief Complaint: Weakness and lightheadedness History of Present Illness: Pateint was interviewed at bedside. He states that he is feeling much better, the weakness has resolved but he still feels a bit light headed. He was again advised on his diet and the complications of diabetes. No events overnight. Patient has not had a bowel movement. Denies any CP, SOB, NVDC, PACHECO, or vision changes. Though patient is lightheaded he does not feel that he will undergo syncope - Current Medications Current Medications: Active Medications Insulin Aspart (Novolog Vial Sliding Scale -) 1 vial SQ ACHS CAYDEN PRN Reason: Protocol Lisinopril (Prinivil) 10 mg PO DAILY CAYDEN Last Admin: 05/22/16 10:44 Dose: 10 mg Ondansetron HCl (Zofran Injection) 4 mg IVPB Q4H PRN PRN Reason: NAUSEA AND/OR VOMITING - Objective Vital Signs: Vital Signs Temperature 98.4 F 05/22/16 15:18 Pulse Rate 102 H 05/22/16 15:18 Respiratory Rate 20 05/22/16 15:18 Blood Pressure 129/64 05/22/16 15:18 O2 Sat by Pulse Oximetry (%) 97 05/22/16 08:00 Constitutional: Yes: Well Nourished, No Distress, Calm, Obese Eyes: Yes: WNL, Conjunctiva Clear, EOM Intact HENT: Yes: WNL, Atraumatic, Normocephalic Neck: Yes: WNL, Supple, Trachea Midline Cardiovascular: Yes: WNL, Regular Rate and Rhythm, S1, S2 Respiratory: Yes: WNL, Regular, CTA Bilaterally Gastrointestinal: Yes: WNL, Normal Bowel Sounds, Soft, Abdomen, Obese Genitourinary: Yes: Polyuria Musculoskeletal: Yes: WNL Extremities: Yes: WNL Peripheral Pulses WNL: Yes Peripheral Pulses: Left Radial: 2+, Right Radial: 2+, Left Doralis Pedis: 2+, Right Dorsalis Pedis: 2+ Edema: No Integumentary: Yes: WNL Neurological: Yes: WNL, Alert, Oriented ...Motor Strength: Yes: WNL Psychiatric: Yes: WNL, Alert, Oriented Labs Lab Results: CBC, BMP 05/21/16 13:10 05/22/16 13:40 Assessment/Plan Patient is a 30 YO M with morbid obesity, and DM II who presented to the ED in DKA. DKA -Gap Closed -Start patient on levimir -Use SSI -Monitor electrolytes -Educate Patient about Diabetes -Have pt meet with dietitian HTN -Monitor BP -Cont Lisinopril PX -Ambulate patient
[2016-05-22] MEDS: INSULIN SLIDING SCALE (NOVOLOG) 1 VIAL SQ SCH ×2 (15:58→21:30)
[2016-05-22] MEDS: INSULIN DETEMIR 100 UNITS/ML MDV SQ SCH (21:30)
[2016-05-22] MEDS ORDERED: INSULIN DETEMIR 100 UNITS/ML MDV SQ SCH ×2 (22:00)
[2016-05-23] MEDS ORDERED: INSULIN DETEMIR 100 UNITS/ML MDV SQ ONE (05:59)
[2016-05-23] MEDS ORDERED: INSULIN (NOVOLOG) ASPART 100 UNITS/ML 10ML VIAL ONE (05:59)
[2016-05-23] MEDS: INSULIN DETEMIR 100 UNITS/ML MDV SQ SCH (06:48)
[2016-05-23] MEDS: INSULIN SLIDING SCALE (NOVOLOG) 1 VIAL SQ SCH (06:49)
[2016-05-23 08:59] LABS: CREATININE 0.6 mg/dL (0.7-1.3); PHOSPHOROUS 3.5 mg/dL (2.5-4.9)
[2016-05-23 09:09] VITALS: BP 128/62; PULSE 91; TEMP 97.8
--- NOTE | 2016-05-23 09:24 | PN ---
Progress Note (short form) - Note Progress Note: currently asymptomatic. denies CP, SOB, palpitaitons, fever, chills or dizzyness pt not discharged yesterday as bgm >350 in the afternoon. opted to monitor pt over 24H for DKA Current Medications Generic Name Dose Route Start Last Admin Trade Name Freq PRN Reason Stop Dose Admin Insulin Aspart 1 vial 05/22/16 16:30 05/23/16 06:49 Novolog Vial Sliding Scale - SQ 4 unit ACHS CAYDEN Administration Protocol Insulin Detemir 10 units 05/22/16 22:00 05/23/16 06:48 Levemir Vial SQ 10 units BID@0700,2200 CAYDEN Administration Lisinopril 10 mg 05/21/16 10:00 05/22/16 10:44 Prinivil PO 10 mg DAILY CAYDEN Administration Ondansetron HCl 4 mg 05/21/16 03:40 Zofran Injection IVPB Q4H PRN NAUSEA AND/OR VOMITING Potassium Chloride 40 meq 05/23/16 09:08 Kcl Oral Solution - PO 05/23/16 09:09 ONCE ONE Last Vital Signs Temp Pulse Resp BP Pulse Ox 97.8 F 91 H 20 128/62 97 05/23/16 09:09 05/23/16 09:09 05/23/16 09:09 05/23/16 09:09 05/22/16 21:00 General NAD CV S1 S2 RRR no murmur/rub/gallop] abdomen obese NT/ND CMP Sodium 139 mmol/L (136-145) 05/23/16 05:30 Potassium 3.2 mmol/L (3.5-5.1) L 05/23/16 05:30 Chloride 101 mmol/L (98-107) 05/23/16 05:30 Carbon Dioxide 26 mmol/L (21-32) D 05/23/16 05:30 Anion Gap 12 (8-16) 05/23/16 05:30 BUN 8 mg/dL (7-18) 05/23/16 05:30 Creatinine 0.6 mg/dL (0.7-1.3) L D 05/23/16 05:30 Creat Clearance w eGFR > 60 (>60) 05/21/16 20:09 Calcium 9.0 mg/dL (8.5-10.1) 05/23/16 05:30 Total Bilirubin 0.5 mg/dL (0.2-1.0) 05/21/16 20:09 AST 53 U/L (15-37) H 05/21/16 20:09 ALT 122 U/L (12-78) H 05/21/16 20:09 Alkaline Phosphatase 101 U/L (45-117) 05/21/16 20:09 Total Protein 6.7 g/dl (6.4-8.2) 05/21/16 20:09 Albumin 3.7 g/dl (3.4-5.0) 05/21/16 20:09 ASSESSMENT AND PLAN: 30yo M with morbid obesity and recently diagnosed DM and HTN presented to the ER and was admitted for further evaluation of their emergent condition 1. DKA-resolved. sugars improved. will require further adjustment and explained to pt. answered all questions about insulin and further management. agrees to see pmd on wednesday. d/c on levemir 10untis BID and iss. 2. Hypokaelmia- kcl 40meq. d/c on several days of oral supplementation 3. Hypophosphatemia- resolved 4. HTN- controlled monitor 5. Morbid obesity- BMI 46. educated on lifestyle changes and need to decrease weight, if not successful will need to consider bariatric surgery. 6. dyslipidemia- LDL above goal. will initiate lifestyle modifications. repeat lipid panel in 3 months 7. d/c home. answered all questions. verbalized understanding and agreement with plan Visit type - Emergency Visit Emergency Visit: Yes ED Registration Date: 05/21/16 Care time: The patient presented to the Emergency Department on the above date and was hospitalized for further evaluation of their emergent condition. - New Patient This patient is new to me today: No - Critical Care Critical Care patient: No - Discharge Referral Referred to [facility] Med [facility].C.: No
[2016-05-23] MEDS ORDERED: POTASSIUM CHLORIDE 40 MEQ/30 ML UNIT DOSE CUP PO ONE (10:00)
[2016-05-23] MEDS: LISINOPRIL 10 MG TABLET (FP) PO SCH (10:45)
== END 2016-05-23 11:49 | disposition home or self-care (01) | DRG 638 ==
LOC: JER 20:58 → JERBED 05-21 04:01 → UNDOADMIN 05-21 04:28 → JERBED 05-21 04:28 → J6S 05-21 10:21
PROVIDERS: ADMIT Internal Medicine; ATTEND Internal Medicine
DX: E13.10 Other specified diabetes mellitus with ketoacidosis without coma (principal); Z68.42 Body mass index [BMI] 45.0-49.9, adult; I10 Essential (primary) hypertension; E66.01 Morbid (severe) obesity due to excess calories; Z71.3 Dietary counseling and surveillance; E83.42 Hypomagnesemia; E83.39 Other disorders of phosphorus metabolism; Z79.4 Long term (current) use of insulin; E78.5 Hyperlipidemia, unspecified
CPT/HCPCS: 36415; 80048; 80053; 80061; 81003; 81015; 82009; 82803; 83036; 83721; 83735; 84100; 84439; 84443; 85025; 85027; 99282-25

== ENCOUNTER 2016-08-25 00:32 | Emergency (ER) | payer OTHER ==
[2016-08-25 00:52] VITALS: BP 139/91; PULSE 90; TEMP 98.7; BMI 45.6
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
== END 2016-08-25 02:58 | disposition home or self-care (01) ==
LOC: JER 00:32
DX: S06.0X0A Concussion without loss of consciousness, initial encounter (principal); Y04.2XXA Assault by strike against or bumped into by another person, initial encounter; Y93.89 Activity, other specified; Y92.480 Sidewalk as the place of occurrence of the external cause; Y07.9 Unspecified perpetrator of maltreatment and neglect
CPT/HCPCS: 70450-TC; 99281-25

== ENCOUNTER 2020-03-03 18:18 | Emergency (ER) | payer OTHER ==
[2020-03-03 18:32] VITALS: TEMP 98; BMI 31.0
[2020-03-03] MEDS ORDERED: LIDOCAINE VISCOUS 2% ORAL/TOP 100 ML BOTTLE MM ONE (19:24)
[2020-03-03] MEDS ORDERED: LIDOCAINE HCL 2% JELLY (5 ML/TUBE) ONE (19:25)
[2020-03-03] MEDS ORDERED: MORPHINE SULFATE 2 MG/ML VIAL ONE ×3 (19:26→20:24)
[2020-03-03] MEDS ORDERED: MIDAZOLAM HCL 2 MG/2 ML SINGLE DOSE VIAL ONE ×3 (19:34→20:24)
[2020-03-03] MEDS ORDERED: MIDAZOLAM HCL 2 MG/2 ML SINGLE DOSE VIAL IVPUSH ONE ×2 (20:18→20:25)
[2020-03-03] MEDS ORDERED: morphine CARPU-JECT 4 MG/1 ML DISP.SYRIN IVPUSH ONE (20:18)
[2020-03-03] MEDS ORDERED: SODIUM CHLORIDE 0.9% 500 ML INFUS.BAG IV ONE (20:19)
[2020-03-03] MEDS ORDERED: morphine CARPU-JECT 2 MG/1 ML DISP.SYRIN IVPUSH ONE ×2 (20:25→20:51)
[2020-03-03 20:27] LABS: BASO % 0.6 % (0-2.0); EOS % 0.7 % (0-4.5); HEMATOCRIT 45.9 % (35.4-49); HEMOGLOBIN 15.6 GM/dL (11.7-16.9); LYMPH % 23.3 % (8-40); MCH 31.1 pg (25.7-33.7); MCHC 33.9 g/dl (32.0-35.9); MEAN CELL VOLUME 91.6 fl (80-96); MEAN PLT VOLUME 10.4 fl (7.5-11.1); MONO % 6.4 % (3.8-10.2); PLATELET COUNT 197 K/MM3 (134-434); RBC 5.01 M/mm3 (4.00-5.60); RDW 13.6 % (11.9-15.9); WHITE BLOOD COUNT 7.8 K/mm3 (4.0-10.0)
[2020-03-03 20:30] LABS: POTASSIUM 3.7 mmol/L (3.5-5.1)
[2020-03-03 20:33] LABS: ALBUMIN 4.5 g/dl (3.4-5.0); BLOOD UREA NITROGEN 12.1 mg/dL (7-18); CALCIUM 9.2 mg/dL (8.5-10.1)
[2020-03-03 20:36] LABS: CREATININE 0.6 mg/dL (0.55-1.3)
[2020-03-03 20:37] LABS: BILIRUBIN,TOTAL 0.5 mg/dL (0.2-1); INR 0.9 (0.83-1.09); PROTHROMBIN TIME (PATIENT) 10.9 SEC (9.7-13.0)
[2020-03-03] MEDS ORDERED: INSULIN (LEVEMIR) 100 UNITS/ML UNITS SQ SCH (22:00)
[2020-03-03] MEDS ORDERED: metFORMIN HCL 500 MG TABLET (FP) PO ONE (22:07)
[2020-03-03] MEDS ORDERED: metFORMIN HCL 500 MG TABLET (FP) ONE (22:10)
[2020-03-03 22:21] VITALS: BP 129/78; PULSE 112
[2020-03-04] MEDS ORDERED: POTASSIUM CHLORIDE TABS 20 MEQ TABLET.ER (FP) PO SCH (10:00)
[2020-03-04] MEDS ORDERED: LISINOPRIL 10 MG TABLET PO SCH (10:00)
== END 2020-03-03 22:25 | disposition home or self-care (01) ==
LOC: JER 18:18
PROC: 3E033NZ Introduction of Analgesics, Hypnotics, Sedatives into Peripheral Vein, Percutaneous Approach (ICD-10-PCS; principal; 2020-03-03)
PROC: 3E033NZ Introduction of Analgesics, Hypnotics, Sedatives into Peripheral Vein, Percutaneous Approach (ICD-10-PCS; 2020-03-03)
PROC: 3E033NZ Introduction of Analgesics, Hypnotics, Sedatives into Peripheral Vein, Percutaneous Approach (ICD-10-PCS; 2020-03-03)
DX: N47.2 Paraphimosis (principal)
CPT/HCPCS: 36415; 71045-TC-FY; 80053; 82962; 85025; 85610; 93005; 93010; 99285-25; C9803; U0003